=== PATIENT | female | born 1950 | race Caucasian/White ===

== ENCOUNTER 2023-09-23 18:51 | Inpatient (IN) | payer OTHER, BC ==
[2023-09-23 18:56] VITALS: BMI 28.3
[2023-09-23] MEDS ORDERED: LABETALOL HCL 5 MG/1 ML (100MG/20 ML VIAL) IVPUSH ONE (19:04)
[2023-09-23] MEDS ORDERED: LABETALOL HCL 20 MG/4 ML VIAL ONE (19:25)
[2023-09-23] MEDS ORDERED: SODIUM CHLORIDE 0.9% 500 ML INFUS.BAG IV ONE (19:28)
[2023-09-23 19:53] LABS: VENOUS BASE EXCESS 3.8 mmol/L (-2-2); VENOUS O2 SATURATION 27.2 % (70-80); VENOUS PCO2 51.9 mmHg (38-52); VENOUS PH 7.382 (7.310-7.410)
[2023-09-23 19:55] LABS: BASO % 0.8 % (0-2.0); EOS % 1.2 % (0-4.5); HEMATOCRIT 42.3 % (32.4-45.2); HEMOGLOBIN 14.3 GM/dL (10.7-15.3); LYMPH % 29.5 % (8-40); MCH 29.1 pg (25.7-33.7); MCHC 33.8 g/dl (32.0-36.0); MEAN CELL VOLUME 86.2 fl (80-96); MONO % 7.8 % (3.8-10.2); NEUT % 60.7 % (42.8-82.8); PLATELET COUNT 372 10^3/uL (134-434); RBC 4.91 M/mm3 (3.60-5.2); RDW 12.9 % (11.6-15.6); WHITE BLOOD COUNT 8.9 K/mm3 (4.0-10.0)
[2023-09-23 20:01] LABS: INR 1.02 (0.83-1.09); PROTHROMBIN TIME (PATIENT) 11.8 SEC (9.7-13.0)
[2023-09-23 20:03] LABS: ACTIVATED PTT 27.8 SECONDS (25.2-36.5)
[2023-09-23 20:12] LABS: POTASSIUM 4.5 mmol/L (3.5-5.1)
[2023-09-23 20:15] LABS: BLOOD UREA NITROGEN 19.4 mg/dL (7-18)
[2023-09-23 20:16] LABS: CALCIUM 9.1 mg/dL (8.5-10.1)
[2023-09-23 20:17] LABS: ALBUMIN 3.3 g/dl (3.4-5.0); MAGNESIUM 1.9 mg/dL (1.8-2.4)
[2023-09-23 20:18] LABS: PHOSPHOROUS 3.4 mg/dL (2.5-4.9)
[2023-09-23 20:20] LABS: BILIRUBIN,TOTAL 0.4 mg/dL (0.2-1); CREATININE 0.7 mg/dL (0.55-1.3)
[2023-09-23 20:21] LABS: TOT PROT 7.8 g/dl (6.4-8.2)
[2023-09-23] MEDS ORDERED: ASPIRIN 81 MG CHEWABLE TABLETS PO ONE (21:47)
[2023-09-23] MEDS ORDERED: ATORVASTATIN CA 80 MG TABLET (FP) PO ONE (21:47)
[2023-09-23] MEDS ORDERED: ASPIRIN 81 MG CHEWABLE TABLETS ONE (21:55)
[2023-09-23] MEDS ORDERED: ATORVASTATIN CA 80 MG TABLET (FP) ONE (21:55)
[2023-09-23 22:43] LABS: URINE APPEARANCE CLEAR; URINE BILIRUBIN NEGATIVE (NEGATIVE); URINE COLOR YELLOW; URINE GLUCOSE (UA) 3+ (NEGATIVE); URINE KETONE 1+ (NEGATIVE); URINE LEUK ESTERASE NEGATIVE (NEGATIVE); URINE NITRITE NEGATIVE (NEGATIVE); URINE PROTEIN NEGATIVE (NEGATIVE); URINE UROBILINOGEN 0.2 mg/dL (0.2-1.0)
[2023-09-23] MEDS ORDERED: INSULIN (LEVEMIR) 100 UNITS/ML UNITS SQ SCH (23:08)
[2023-09-23] MEDS ORDERED: LOSARTAN POTASSIUM 50 MG TABLET PO ONE (23:11)
[2023-09-23] MEDS ORDERED: LABETALOL HCL 5 MG/1 ML (100MG/20 ML VIAL) IVPUSH PRN (23:17)
[2023-09-23] MEDS ORDERED: LOSARTAN POTASSIUM 50 MG TABLET ONE (23:21)
[2023-09-23 23:26] LABS: METHADONE, UR NEGATIVE (NEGATIVE); URINE BENZODIAZEPINES NEGATIVE (NEGATIVE)
[2023-09-23 23:27] LABS: COCAINE, UR NEGATIVE (NEGATIVE); OPIATES, URI NEGATIVE (NEGATIVE); PHENCYCLIDINE,URINE NEGATIVE (NEGATIVE); URINE BARBITURATES NEGATIVE (NEGATIVE)
[2023-09-23 23:29] LABS: URINE AMPHETAMINES NEGATIVE (NEGATIVE)
[2023-09-24 07:15] LABS: BASO % 0.7 % (0-2.0); HEMATOCRIT 38.4 % (32.4-45.2); HEMOGLOBIN 12.8 GM/dL (10.7-15.3); LYMPH % 30.7 % (8-40); MCH 29.1 pg (25.7-33.7); MCHC 33.4 g/dl (32.0-36.0); MEAN CELL VOLUME 87.4 fl (80-96); MEAN PLT VOLUME 8.5 fl (7.5-11.1); MONO % 7.1 % (3.8-10.2); NEUT % 60.5 % (42.8-82.8); PLATELET COUNT 302 10^3/uL (134-434); RBC 4.39 M/mm3 (3.60-5.2); RDW 13.2 % (11.6-15.6); WHITE BLOOD COUNT 9.5 K/mm3 (4.0-10.0)
[2023-09-24 07:33] LABS: MAGNESIUM 1.5 mg/dL (1.8-2.4)
[2023-09-24 07:36] LABS: PHOSPHOROUS 4.1 mg/dL (2.5-4.9)
[2023-09-24] MEDS: INSULIN ASPART SLIDING SCALE (NOVOLOG) 1 VIAL SQ SCH ×5 (10:05→21:58)
[2023-09-24] MEDS: ASPIRIN 325 MG TABLET PO SCH (10:16)
[2023-09-24] MEDS: ENOXAPARIN NA (PORCINE) 40 MG/0.4 ML DISP.SYRIN SQ SCH (10:17)
[2023-09-24] MEDS: LOSARTAN POTASSIUM 50 MG TABLET PO SCH (10:17)
[2023-09-24] MEDS: HYDROCHLOROTHIAZIDE 25 MG TABLET (FP) PO SCH (10:17)
[2023-09-24] MEDS ORDERED: METOPROLOL TARTRATE 5 MG/5 ML VIAL ONE (11:41)
[2023-09-24] MEDS ORDERED: LABETALOL HCL 5 MG/1 ML (100MG/20 ML VIAL) ONE (11:43)
[2023-09-24] MEDS: INSULIN (LEVEMIR) 100 UNITS/ML UNITS SQ SCH ×2 (12:41→21:08)
[2023-09-24] MEDS ORDERED: amLODIPine BESYLATE 5 MG TABLET (FP) PO SCH (12:45)
[2023-09-24] MEDS ORDERED: amLODIPine BESYLATE 5 MG TABLET (FP) ONE ×2 (12:53→22:29)
[2023-09-24] MEDS ORDERED: ATORVASTATIN CA 80 MG TABLET (FP) ONE (21:02)
[2023-09-24] MEDS: ATORVASTATIN CA 80 MG TABLET (FP) PO SCH (21:08)
[2023-09-24] MEDS ORDERED: amLODIPine BESYLATE 5 MG TABLET (FP) PO ONE (22:17)
[2023-09-24] MEDS ORDERED: CLOPIDOGREL BISULFATE 75 MG TABLET (FP) ONE (22:29)
[2023-09-24] MEDS: CLOPIDOGREL BISULFATE 75 MG TABLET (FP) PO SCH (22:31)
[2023-09-25] MEDS: INSULIN ASPART SLIDING SCALE (NOVOLOG) 1 VIAL SQ SCH ×4 (08:12→21:57)
[2023-09-25] MEDS ORDERED: MAGNESIUM OXIDE 400 MG TABLET (FP) PO ONE (10:45)
[2023-09-25] MEDS: HYDROCHLOROTHIAZIDE 25 MG TABLET (FP) PO SCH (10:47)
[2023-09-25] MEDS: INSULIN (LEVEMIR) 100 UNITS/ML UNITS SQ SCH ×2 (10:47→21:57)
[2023-09-25] MEDS: ENOXAPARIN NA (PORCINE) 40 MG/0.4 ML DISP.SYRIN SQ SCH (10:47)
[2023-09-25] MEDS: ASPIRIN 325 MG TABLET PO SCH (10:47)
[2023-09-25] MEDS: CLOPIDOGREL BISULFATE 75 MG TABLET (FP) PO SCH (10:47)
[2023-09-25] MEDS: LOSARTAN POTASSIUM 50 MG TABLET PO SCH (10:47)
[2023-09-25] MEDS ORDERED: MAGNESIUM OXIDE 400 MG TABLET (FP) ONE (10:49)
[2023-09-25] MEDS ORDERED: amLODIPine BESYLATE 10 MG TABLET (FP) ONE (11:31)
[2023-09-25] MEDS ORDERED: amLODIPine BESYLATE 10 MG TABLET (FP) PO SCH (12:30)
[2023-09-25] MEDS ORDERED: INSULIN (NOVOLOG) ASPART 100 UNITS/ML 10ML VIAL ONE ×2 (16:40→21:59)
[2023-09-25 21:08] VITALS: BP 148/79; PULSE 90; RESP 19; TEMP 98.8
[2023-09-25] MEDS ORDERED: ATORVASTATIN CA 80 MG TABLET (FP) ONE (21:50)
[2023-09-25] MEDS: ATORVASTATIN CA 80 MG TABLET (FP) PO SCH (21:57)
[2023-09-25] MEDS ORDERED: INSULIN (LEVEMIR) 100 UNITS/ML UNITS SQ ONE (21:59)
== END 2023-09-25 22:56 | disposition left against medical advice (07) | DRG 65 ==
LOC: JER 18:51 → JERBED 21:26
PROVIDERS: ADMIT Internal Medicine
DX: I63.9 Cerebral infarction, unspecified (principal); G81.94 Hemiplegia, unspecified affecting left nondominant side; I16.1 Hypertensive emergency; I10 Essential (primary) hypertension; I65.29 Occlusion and stenosis of unspecified carotid artery; E11.65 Type 2 diabetes mellitus with hyperglycemia; E66.9 Obesity, unspecified; E78.5 Hyperlipidemia, unspecified; R47.81 Slurred speech; R91.1 Solitary pulmonary nodule
CPT/HCPCS: 36415; 70450-TC; 70496-TC; 70498-TC; 70551-TC; 71045-TC-FY; 80053; 80061; 80307; 81003; 82010; 82550; 82803; 82962; 83036; 83735; 84100; 84443; 84484; 85025; 85027; 85610; 85730; 86850; 86900; 86901; 93005; 93010; 93880-TC; 93970-TC; 99285-25; Q9967

== ENCOUNTER 2024-01-10 19:20 | Emergency (ER) | payer OTHER, BC ==
[2024-01-10 19:25] VITALS: TEMP 97.6; BMI 28.4
[2024-01-10 21:17] LABS: BASO % 0.7 % (0-2.0); EOS % 1.4 % (0-4.5); HEMOGLOBIN 12.8 GM/dL (10.7-15.3); LYMPH % 21.7 % (8-40); MCH 29.8 pg (25.7-33.7); MCHC 33.6 g/dl (32.0-36.0); MEAN CELL VOLUME 88.7 fl (80-96); MEAN PLT VOLUME 7.7 fl (7.5-11.1); MONO % 7.2 % (3.8-10.2); PLATELET COUNT 336 10^3/uL (134-434); RBC 4.28 M/mm3 (3.60-5.2); RDW 13.7 % (11.6-15.6); WHITE BLOOD COUNT 10.3 K/mm3 (4.0-10.0)
[2024-01-10 21:43] LABS: POTASSIUM 3.8 mmol/L (3.5-5.1)
[2024-01-10 21:45] LABS: CALCIUM 9.2 mg/dL (8.5-10.1)
[2024-01-10 21:46] LABS: ALBUMIN 3.6 g/dl (3.4-5.0); BLOOD UREA NITROGEN 12.8 mg/dL (7-18)
[2024-01-10 21:49] LABS: CREATININE 0.7 mg/dL (0.55-1.3)
[2024-01-10 21:50] LABS: BILIRUBIN,TOTAL 0.5 mg/dL (0.2-1)
[2024-01-10 21:51] LABS: TOT PROT 7.4 g/dl (6.4-8.2)
[2024-01-10 23:23] VITALS: BP 148/76; PULSE 90; RESP 17
== END 2024-01-10 23:44 | disposition home or self-care (01) ==
LOC: JER 19:20
DX: H53.8 Other visual disturbances (principal)
CPT/HCPCS: 36415; 70450-TC; 80053; 84484; 85025; 93005; 93010; 99285-25

== ENCOUNTER 2025-02-18 12:19 | Inpatient (IN) | payer OTHER, BC ==
[2025-02-18] MEDS ORDERED: ACETAMINOPHEN INJECTION 100 ML ONE (12:59)
[2025-02-18] MEDS ORDERED: ONDANSETRON 4 MG/2 ML VIAL ONE (12:59)
[2025-02-18] MEDS: ONDANSETRON 4 MG/2 ML VIAL IVPUSH ONE (13:19)
[2025-02-18] MEDS: ACETAMINOPHEN 1000 MG/100 ML BAG IVPB ONE (13:19)
[2025-02-18 13:31] LABS: ABSOLUTE IMMATURE GRANULOCYTES 0.03 x10^3/uL (0.0-0.031); BASOPHILS # 0.06 x10^3/uL (0.01-0.08); EOSINOPHIL % 0.5 % (0.7-5.8); EOSINOPHILS # 0.03 x10^3/uL (0.04-0.36); HEMATOCRIT 38.7 % (34.1-44.9); HEMOGLOBIN 11.8 g/dL (11.2-15.7); MCHC 30.5 g/dl (32.2-35.5); MEAN CELL VOLUME 88.6 fl (79.4-94.8); MONOCYTE # 0.37 x10^3/uL (0.24-0.86); MONOCYTE % 6.3 % (4.7-12.5); PLATELET COUNT 392 x10^3/uL (182-369); RDW 14.9 % (12.4-16.6)
[2025-02-18 13:38] LABS: INR 1.99 (0.83-1.09); PROTHROMBIN TIME (PATIENT) 21.7 SEC (9.7-13.0)
[2025-02-18 13:41] LABS: ACTIVATED PTT 33.3 SECONDS (25.2-36.5)
[2025-02-18 13:52] LABS: POTASSIUM 4.5 mmol/L (3.5-5.1)
[2025-02-18 13:54] LABS: ALBUMIN 3.4 g/dl (3.4-5.0); BLOOD UREA NITROGEN 28.1 mg/dL (7-18); CALCIUM 10.2 mg/dL (8.5-10.1); MAGNESIUM 2.2 mg/dL (1.8-2.4)
[2025-02-18 13:58] LABS: CREATININE 0.9 mg/dL (0.55-1.3)
[2025-02-18 13:59] LABS: BILIRUBIN,TOTAL 1.6 mg/dL (0.2-1)
[2025-02-18 14:49] LABS: HCV DIAGNOSTIC IN-HOUSE W/RFLX NON-REACTIVE (NONREACTIVE); HIV INTERPRETATION NEGATIVE (NEGATIVE)
[2025-02-18] MEDS ORDERED: FUROSEMIDE 40 MG/4 ML INJECTABLE VIAL ONE (16:39)
[2025-02-18] MEDS: FUROSEMIDE 40 MG/4 ML INJECTABLE VIAL IVPUSH ONE (16:56)
[2025-02-18] MEDS ORDERED: ACETAMINOPHEN 500 MG TABLET (FP) PO PRN (19:59)
[2025-02-18 20:20] LABS: EPI CELLS 36 /uL (0-25.1); HYALINE CASTS 0 /uL (0-3.1); PH,URINE 5.5 (5.0-8.0); URINE APPEARANCE CLEAR; URINE BACTERIA 489 /uL (0-1359); URINE BILIRUBIN NEGATIVE (NEGATIVE); URINE COLOR YELLOW; URINE GLUCOSE (UA) 3+ (NEGATIVE); URINE KETONE TRACE (NEGATIVE); URINE LEUK ESTERASE 1+ (NEGATIVE); URINE NITRITE NEGATIVE (NEGATIVE); URINE PROTEIN NEGATIVE (NEGATIVE); URINE RBC 12 /uL (0-23.9); URINE UROBILINOGEN 0.2 mg/dL (0.2-1.0); URINE WBC 80 /uL (0-25.8)
[2025-02-18 21:16] VITALS: BMI 31.2
[2025-02-18] MEDS: APIXABAN 5 MG TABLET PO SCH (22:08)
[2025-02-18] MEDS: METOPROLOL SUCCINATE 100 MG, METOPROLOL SUCCINATE 50 MG PO SCH (22:08)
[2025-02-19] MEDS: FUROSEMIDE 40 MG/4 ML INJECTABLE VIAL IVPUSH SCH (05:48)
[2025-02-19 07:18] LABS: POTASSIUM 3.6 mmol/L (3.5-5.1)
[2025-02-19 07:22] LABS: CALCIUM 9.7 mg/dL (8.5-10.1)
[2025-02-19 07:23] LABS: ALBUMIN 3.2 g/dl (3.4-5.0); BLOOD UREA NITROGEN 27.2 mg/dL (7-18)
[2025-02-19 07:26] LABS: BILIRUBIN,TOTAL 1.3 mg/dL (0.2-1); CREATININE 0.8 mg/dL (0.55-1.3); HEMATOCRIT 37.6 % (34.1-44.9); HEMOGLOBIN 11.6 g/dL (11.2-15.7); MCHC 30.9 g/dl (32.2-35.5); MEAN CELL VOLUME 88.9 fl (79.4-94.8); MEAN PLT VOLUME 9.5 fl (9.4-12.3); PHOSPHOROUS 4.9 mg/dL (2.5-4.9); PLATELET COUNT 337 x10^3/uL (182-369); RDW 15.1 % (12.4-16.6); TOT PROT 6.5 g/dl (6.4-8.2)
[2025-02-19 07:56] LABS: MAGNESIUM 2.2 mg/dL (1.8-2.4)
[2025-02-19] MEDS: PIPERACILLIN/TAZOB 3.375 GM 3.375 GM in DEXTROSE 5%-WATER - 50 ML IVPB SCH (12:40)
[2025-02-19] MEDS ORDERED: PIPERACILLIN/TAZOB 3.375 GM 3.375 GM in DEXTROSE 5%-WATER - 50 ML IVPB SCH (18:00)
[2025-02-20 06:36] LABS: ABSOLUTE IMMATURE GRANULOCYTES 0.03 x10^3/uL (0.0-0.031); BASOPHILS # 0.08 x10^3/uL (0.01-0.08); EOSINOPHIL % 2.2 % (0.7-5.8); EOSINOPHILS # 0.17 x10^3/uL (0.04-0.36); HEMATOCRIT 36.5 % (34.1-44.9); HEMOGLOBIN 11.5 g/dL (11.2-15.7); MCHC 31.5 g/dl (32.2-35.5); MEAN CELL VOLUME 87.1 fl (79.4-94.8); MEAN PLT VOLUME 9.2 fl (9.4-12.3); MONOCYTE # 0.73 x10^3/uL (0.24-0.86); MONOCYTE % 9.4 % (4.7-12.5); PLATELET COUNT 351 x10^3/uL (182-369); RDW 14.7 % (12.4-16.6)
[2025-02-20 07:05] LABS: POTASSIUM 3.2 mmol/L (3.5-5.1)
[2025-02-20 07:12] LABS: ALBUMIN 3.2 g/dl (3.4-5.0); BLOOD UREA NITROGEN 18.5 mg/dL (7-18); CALCIUM 9.6 mg/dL (8.5-10.1)
[2025-02-20 07:14] LABS: CREATININE 0.8 mg/dL (0.55-1.3)
[2025-02-20 07:17] LABS: BILIRUBIN,TOTAL 1.3 mg/dL (0.2-1); TOT PROT 6.5 g/dl (6.4-8.2)
[2025-02-20] MEDS: KCL 10 MEQ IVPB 10 MEQ/100 ML INFUS.BAG IVPB SCH (13:18)
[2025-02-21 06:56] LABS: ABSOLUTE IMMATURE GRANULOCYTES 0.02 x10^3/uL (0.0-0.031); BASOPHILS # 0.08 x10^3/uL (0.01-0.08); EOSINOPHIL % 2.1 % (0.7-5.8); EOSINOPHILS # 0.15 x10^3/uL (0.04-0.36); HEMATOCRIT 37.4 % (34.1-44.9); HEMOGLOBIN 11.7 g/dL (11.2-15.7); MCHC 31.3 g/dl (32.2-35.5); MONOCYTE # 0.71 x10^3/uL (0.24-0.86); PLATELET COUNT 368 x10^3/uL (182-369); RDW 15.2 % (12.4-16.6)
[2025-02-21 07:13] LABS: POTASSIUM 3.3 mmol/L (3.5-5.1)
[2025-02-21 07:15] LABS: CALCIUM 9.2 mg/dL (8.5-10.1)
[2025-02-21 07:16] LABS: ALBUMIN 3.2 g/dl (3.4-5.0); BLOOD UREA NITROGEN 18.4 mg/dL (7-18); MAGNESIUM 1.8 mg/dL (1.8-2.4)
[2025-02-21 07:19] LABS: CREATININE 0.8 mg/dL (0.55-1.3)
[2025-02-21 07:21] LABS: BILIRUBIN,TOTAL 1.2 mg/dL (0.2-1); TOT PROT 6.6 g/dl (6.4-8.2)
[2025-02-21] MEDS: KCL 10 MEQ IVPB 10 MEQ/100 ML INFUS.BAG IVPB SCH (08:05)
[2025-02-21] MEDS: FUROSEMIDE 40 MG/4 ML INJECTABLE VIAL IVPUSH SCH (10:06)
[2025-02-21 14:42] VITALS: BP 97/65; PULSE 90; RESP 16; TEMP 98.2
== END 2025-02-21 17:36 | disposition home or self-care (01) | DRG 291 ==
LOC: JER 12:19 → JERBED 17:30 → J4S 20:25 → OBSVTOIN 02-20 13:52
DX: I11.0 Hypertensive heart disease with heart failure (principal); I50.43 Acute on chronic combined systolic (congestive) and diastolic (congestive) heart failure; I16.1 Hypertensive emergency; I48.91 Unspecified atrial fibrillation; Z79.01 Long term (current) use of anticoagulants; Z99.81 Dependence on supplemental oxygen; E78.5 Hyperlipidemia, unspecified; Z86.73 Personal history of transient ischemic attack (TIA), and cerebral infarction without residual deficits; R74.01 Elevation of levels of liver transaminase levels; E66.9 Obesity, unspecified; R82.71 Bacteriuria; R10.11 Right upper quadrant pain; Z68.31 Body mass index [BMI] 31.0-31.9, adult
CPT/HCPCS: 36415; 71045-TC-FY; 71275-TC; 76700-TC; 78226-TC; 80053; 80061; 81003; 82248; 82962; 83690; 83735; 83880; 84100; 84484; 85025; 85027; 85610; 85730; 86803; 86850; 86900; 86901; 87086; 87389; 93005; 93010; 97116-GP; 97161-GP; 99285-25; A9537; G0378; Q9967